=== PATIENT | female | born 1960 | race Caucasian/White ===

== ENCOUNTER 2016-12-09 19:50 | Emergency (ER) | payer OTHER ==
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
[2016-12-09 20:05] VITALS: BP 142/66; PULSE 68; TEMP 97.7; BMI 32.3
== END 2016-12-09 20:10 | disposition home or self-care (01) ==
LOC: FER 19:50
DX: Z48.00 Encounter for change or removal of nonsurgical wound dressing (principal)
CPT/HCPCS: 99281-25

== ENCOUNTER 2017-05-05 06:18 | Day surgery (SDC) | payer OTHER ==
[2017-04-26 10:34] VITALS: BMI 34.4
[2017-05-05] MEDS ORDERED: MIDAZOLAM HCL 2 MG/2 ML SINGLE DOSE VIAL ONE (07:28)
[2017-05-05] MEDS ORDERED: ROPIVACAINE HCL 0.5% 30ML VIAL ONE (07:28)
[2017-05-05] MEDS ORDERED: PROPOFOL 20 ML ONE ×5 (07:58→09:07)
[2017-05-05] MEDS ORDERED: SUCCINYLCHOLINE CHLORIDE 200 MG/10 ML VIAL ONE (07:59)
[2017-05-05] MEDS ORDERED: PHENYLEPHRINE HCL 10 MG/1 ML SINGLE DOSE VIAL ONE (07:59)
[2017-05-05] MEDS ORDERED: ePHEDrine SULFATE 50 MG/1 ML AMPULE ONE ×2 (07:59→08:23)
[2017-05-05] MEDS ORDERED: ceFAZolin SODIUM 1 GM VIAL ONE ×2 (08:33)
[2017-05-05] MEDS ORDERED: BACITRACIN 15 GM TUBE TOPICAL OINTMENT ONE (09:42)
[2017-05-05] MEDS ORDERED: ONDANSETRON 4 MG/2 ML VIAL IVPUSH PRN (10:23)
[2017-05-05] MEDS ORDERED: ONDANSETRON 4 MG/2 ML VIAL ONE (11:06)
[2017-05-05] MEDS ORDERED: ACETAMINOPHEN 325 MG TABLET (FP) PO ONE (11:10)
[2017-05-05 12:17] VITALS: TEMP 98
[2017-05-05 13:21] VITALS: BP 131/79; PULSE 49
--- NOTE | 2017-05-06 06:56 | OP ---
DATE OF OPERATION: 05/05/2017 PREOPERATIVE DIAGNOSES: Left knee anterior cruciate ligament rupture, medial meniscal tear. POSTOPERATIVE DIAGNOSES: Left knee anterior cruciate ligament rupture, medial meniscal tear, plus lateral meniscal tear. PROCEDURE: Left knee arthroscopy, anterior cruciate ligament reconstruction utilizing tibialis anterior allograft, partial medial, partial lateral meniscectomy. SURGEON: Jess Bell MD FLOOR TECHNICIAN: LUCIA Madrid, whose skillful assistance was necessary for the safe and timely performance of this procedure. Ms. Cortes was able to assist in retraction, limb positioning, driving the camera, assisting in the insertion of orthopedic stabilization of hardware. ANESTHESIA TYPE: Regional, plus spinal. POSTOPERATIVE CONDITION: Stable. COMPLICATIONS: None. IMPLANTS: Arthrex TightRope x2. INDICATIONS: This is a pleasant 57-year-old woman who had been having instability symptoms to her knee. MRI demonstrated ACL tear, medial meniscal tear. Treatment options including nonoperative versus operative management were discussed. Operative risks were reviewed in detail including bleeding, infection, neurovascular injury, need for further surgery, postoperative pain and stiffness, persistent instability, progression of osteoarthritis. We discussed medical risks such as heart attack, stroke, DVT, PE, and . We discussed the use of perioperative DVT prophylaxis. We discussed the use of perioperative antibiotic prophylaxis. We reviewed the postoperative rehabilitation protocol. I addressed all the patient's questions. She voiced understanding and elected to proceed. DESCRIPTION OF PROCEDURE: Patient was brought to the operating room after the administration of a regional block in the preoperative holding area. The left lower extremity was then prepped and draped in the usual sterile fashion. A preoperative dose of antibiotics given and the usual timeout procedure was performed. At this point, the knee was examined. There was a moderate effusion. There was positive Lelia. The collaterals and PCL were stable. The arthroscopic portal sites were now marked out. The lateral portal was now established using an 11 blade. The arthroscope was now passed into the knee. Examination of the patellofemoral joint demonstrated grade 3 on the patellar side and grade 4 chondromalacia. The arthroscope was now passed down into the notch. Here, the ACL was seen to be scarred into the PCL. The medial portal was now established under spinal needle localization. Probing of the ACL demonstrated that there were still a small number of fibers attached to the lateral wall. However, they were not under tension and, therefore, resulting in ACL insufficiency. The arthroscope was now passed to the medial compartment. Here, there were moderate, grade 3 changes in the tibial and femoral sides. There was a bucket-handle tear of the posterior horn of the medial meniscus. Utilizing a combination of meniscal biters and a shaver, the meniscus was debrided down to a stable base. The arthroscope was now passed to the lateral compartment. Here, a bucket-handle lateral meniscus tear was also identified in the posterior horn and body. Again, utilizing a combination of meniscal biters and a shaver, this was debrided down to a stable base. The arthroscope was now passed back into the notch. The remnant of the ACL was debrided. This was done using the shaver as well as RF cautery. The graft, meanwhile, was prepared on the back table. A size 10 x 72 mm graft was obtained and loaded onto TightRopes. The arthroscope was now passed to the anatomic origin of the ACL on the femoral side. A femoral drill guide was inserted, and a small incision was made distally in the thigh. The trocar was passed down to the level of the bone. A FlipCutter was now drilled into the knee. FlipCutter position was verified visually and was satisfactory. FlipCutter was now toggled, and a 10 mm x 25 mm socket was created in the femur. The FlipCutter was now removed. Passing suture was placed. Attention was then turned to the tibial side. The tibial drill guide was inserted. This also was placed into the center of the anatomic footprint. The trocar was again inserted through a small incision, this time in the anterior surface . The FlipCutter was now drilled into the knee. FlipCutter position was verified visually and was satisfactory. The FlipCutter was then toggled, and a 40 mm x 10 mm socket was created on the tibial side. The graft was now loaded onto the passing sutures, and the TightRope was passed through the femoral tunnel. The TightRope was retrieved out of the lateral aspect of the femur. Clamp was then placed, and the TightRope was laid down onto the lateral aspect of the femoral cortex. The TightRope was now toggled in order to retrieve the graft into the femoral socket by 20 mm. The tibial sutures were now passed. The button was loaded onto the graft. Even though the FlipCutter had come out the anterior tibial cortex, the larger button was used. The knee was now cycled 10 times and was held in a position of 25 degrees of flexion. A TightRope on the tibial side was now patent. A Lelia maneuver was now performed demonstrating good stability to the knee. At this point, the excess sutures were tied and cut. The subcutaneous tissue was approximated using 3-0 Vicryl. The skin was closed using 3-0 nylon. Sterile dressings were placed. The patient was placed into a knee immobilizer. She was transferred to the recovery room in stable condition. JESS BELL M.D. [id number]
== END 2017-05-05 13:25 | disposition home or self-care (01) ==
LOC: FASU 06:18
PROVIDERS: ATTEND Orthopaedic Surgery Sports Medicine
PROC: 0SBD4ZZ Excision of Left Knee Joint, Percutaneous Endoscopic Approach (ICD-10-PCS; 2017-05-05)
PROC: 0SBD4ZZ Excision of Left Knee Joint, Percutaneous Endoscopic Approach (ICD-10-PCS; 2017-05-05)
PROC: 0MQP4ZZ Repair Left Knee Bursa and Ligament, Percutaneous Endoscopic Approach (ICD-10-PCS; principal; 2017-05-05 08:39)
DX: S83.242A Other tear of medial meniscus, current injury, left knee, initial encounter (principal); S83.282A Other tear of lateral meniscus, current injury, left knee, initial encounter; X58.XXXA Exposure to other specified factors, initial encounter; Y93.9 Activity, unspecified; Y92.9 Unspecified place or not applicable
CPT/HCPCS: 94760; 97116-GP

== ENCOUNTER 2018-01-04 04:56 | Day surgery (SDC) | payer OTHER ==
[2018-01-02 13:54] VITALS: BMI 35.9
[2018-01-04] MEDS ORDERED: DEXTROSE 5%-0.45% SALINE 1,000 ML IV SCH (11:00)
[2018-01-04] MEDS ORDERED: IBUPROFEN 800 MG/8 ML IJ IVPB SCH (11:00)
[2018-01-04] MEDS ORDERED: ACETAMINOPHEN 1000 MG/100 ML VIAL (NON FORMULARY) IVPB ONE (11:01)
[2018-01-04] MEDS ORDERED: MIDAZOLAM HCL 2 MG/2 ML SINGLE DOSE VIAL ONE (11:16)
[2018-01-04] MEDS ORDERED: ROCURONIUM BROMIDE 50 MG/5 ML VIAL ONE (11:22)
[2018-01-04] MEDS ORDERED: PROPOFOL 20 ML ONE (11:22)
[2018-01-04] MEDS ORDERED: SUCCINYLCHOLINE CHLORIDE 200 MG/10 ML VIAL ONE (11:22)
[2018-01-04] MEDS ORDERED: ceFAZolin SODIUM 1 GM VIAL IVPB ONE (11:25)
[2018-01-04] MEDS ORDERED: ceFAZolin SODIUM 1 GM VIAL ONE (11:30)
[2018-01-04] MEDS ORDERED: VASOPRESSIN 20 UNITS/ML VIAL IV ONE (11:40)
[2018-01-04] MEDS ORDERED: LIDOCAINE HCL 2% JELLY (5 ML/TUBE) ONE (11:59)
[2018-01-04] MEDS ORDERED: LIDOCAINE HCL/PF 2% SDV 5ML VIAL ONE (11:59)
[2018-01-04] MEDS ORDERED: KETOROLAC TROMETHAMINE 30 MG/1 ML VIAL ONE (11:59)
[2018-01-04] MEDS ORDERED: DEXAMETHASONE SOD PHOSPHATE 4 MG/1 ML VIAL ONE (11:59)
[2018-01-04] MEDS ORDERED: ACETAMINOPHEN INJECTION 100 ML IVPB ONE (12:47)
[2018-01-04] MEDS ORDERED: PROMETHAZINE HCL 25 MG/1 ML VIAL IVPUSH PRN (13:58)
[2018-01-04] MEDS ORDERED: oxyCODONE HCL 5 MG TABLET PO PRN (13:58)
[2018-01-04] MEDS ORDERED: ONDANSETRON 4 MG/2 ML VIAL IVPUSH PRN (13:58)
[2018-01-04] MEDS ORDERED: LACTATED RINGERS SOLUTION 1,000 ML IV SCH (14:00)
[2018-01-04 15:17] VITALS: BP 110/60; PULSE 49; TEMP 98.1
--- NOTE | 2018-01-31 13:59 | OP ---
DATE OF OPERATION: 01/04/2018 PREOPERATIVE DIAGNOSES: Stress urinary incontinence, hypermobile urethra. POSTOPERATIVE DIAGNOSES: Stress urinary incontinence, hypermobile urethra. PROCEDURE: Suburethral sling, cystoscopy. ANESTHESIA: General. SURGEON: Darshan Bhagat MD ESTIMATED BLOOD LOSS: Minimal. FINDING: Hypermobile urethra. PREOPERATIVE INDICATIONS: The patient is a 57-year-old female with stress urinary incontinence by history, exam, and by testing. She comes to the OR for sling placement. OPERATION: Patient was brought to the OR, placed on the table in supine position, given general anesthesia and IV antibiotics and placed in the modified lithotomy position. The groin was prepped and draped sterilely. Grady catheter was placed. The middle portion of the urethra was identified and marked with a marking pen. Pitressin was injected into the vagina mucosa. An incision was made over the mid-portion of the urethra. The vagina mucosa was sharply dissected off the periurethral tissues in a lateral fashion. The bladder was emptied. Using the Altis mini-sling, the trocar was placed on the right side, through the incision under fingertip control into the obturator canal. The trocar was rotated. The device implanted. This was also done on the left side. Cystoscopy was performed, revealed no evidence of any perforation. There was also no evidence of any button holing within the vaginal mucosa. The sling was tightened, so it was lying flat against the urethra. It was low tension. The excess suture was excised. The vaginal mucosa was closed with 2-0 Vicryl suture in running fashion. Patient was woken up. Mateusz [id number]
== END 2018-01-04 15:00 | disposition home or self-care (01) ==
LOC: JASU-SURG 04:56
PROVIDERS: ATTEND Urology
PROC: 0TSD0ZZ Reposition Urethra, Open Approach (ICD-10-PCS; principal; 2018-01-04 09:00)
DX: N39.3 Stress incontinence (female) (male) (principal); N36.41 Hypermobility of urethra; I10 Essential (primary) hypertension; E66.01 Morbid (severe) obesity due to excess calories
CPT/HCPCS: 94760; J0131

== ENCOUNTER 2019-08-12 10:24 | Emergency (ER) | payer OTHER ==
--- NOTE | 2019-08-12 10:27 | PDOC ---
History of Present Illness - General Chief Complaint: Injury Stated Complaint: TRIP AND FALL, HEAD/FACIAL INJURY Time Seen by Provider: 08/12/19 10:27 History Source: Patient Exam Limitations: No Limitations - History of Present Illness Initial Comments: 59 year old female with PMH HLD presented to ED for head injury fall associated with LOC. She reported last night she was walking from the kitchen to another room, and she figures she fell because the throw on the ground must have caught her toe, because she awoke on the ground face first with the rug moved. She denied prodromal symptoms. Her reported a friend went to the house last night and found the pt face down on the ground, but she immediately awoke and did not want to come to the ED. The reported he kept her awake for four hours last night because he was afraid she had a concussion. He reported this AM he was able to convince her to be medically evaluated. Pt denied headache, facial pain, neck pain, back pain, abdominal pain, extremity pain, chest pain, shortness of breath, lightheadedness, numbness, tingling, weakness, visual changes. ROS General: denied fever, chills, generalized weakness. HEENT: denied sore throat, rhinorrhea, ear pain. Cardiovascular: denied chest pain, palpitations, syncope, diaphoresis. Respiratory: denied shortness of breath, cough, sputum production, hemoptysis. Gastrointestinal: denied abdominal pain, nausea, vomiting, diarrhea, constipation, blood in stool. Genitourinary: denied dysuria, increased urinary frequency, hematuria, urinary incontinence, flank pain. Back: denied back pain. Musculoskeletal: denied joint pain, muscle pain, joint swelling. Neurological: denied headache, dizziness, numbness, tingling, weakness. Integumentary: denied rash, laceration, abrasion. Hematologic/Lymphatic: admitted to bruising. denied bleeding. PE Constitutional: Well-nourished, Well-developed, appearing stated age. Airway: intact Breathing: bilateral breath sounds Circulation: 2+ carotid pulse B/L HEENT: head is normocephalic, atraumatic. nasal bridge tenderness to palpation. infraorbital ecchymoses on the right. EOMI. PERRLA. Neck: supple. Full ROM. no midline c-spine tenderness to palpation. No step offs. Cardiovascular: regular heart rhythm. no murmurs. no pericardial friction rub. Chest wall: No tenderness to palpation of anterior chest wall. No deformity to anterior chest wall. Respiratory: clear to auscultation bilaterally. no crackles, rhonchi or wheezing. no stridor. Gastrointestinal: soft, nontender. normal bowel sounds. no rebound, guarding, masses. No ecchymoses. Back: no midline T-spine or L-spine tenderness to palpation. No step offs. Pelvis: lower extremities equal in length without external rotation. No hip tenderness to palpation. ambulates well without assistance. Extremities: peripheral pulses intact. no lower extremity edema. Neurological: alert. oriented x3. CN2-12 intact. 5/5 strength all extremities. normal ankle plantar flexion. full sensation all extremities and bilateral face. romberg negative. no ataxia. gait normal. Psych: awake, alert, oriented x3. follows commands. answers questions appropriately. Past History - Past Medical History Allergies/Adverse Reactions: Allergies Allergy/AdvReac Type Severity Reaction Status Date / Time No Known Allergies Allergy Verified 08/12/19 10:25 Home Medications: Ambulatory Orders Esomeprazole Magnesium [Nexium 24Hr] 40 mg PO DAILY 12/09/16 Topiramate 100 mg PO ASDIR 01/02/18 - Immunization History Immunization Up to Date: Yes - Psycho Social/Smoking Cessation Hx Smoking History: Former smoker Have you smoked in the past 12 months: No Number of Cigarettes Smoked Daily: 3 If you are a former smoker, when did you quit?: 2015 Drug/Substance Use Hx: No Substance Use Type: None Hx Substance Use Treatment: No ED Treatment Course - LABORATORY CBC & Chemistry Diagram: 08/12/19 11:23 08/12/19 11:23 Medical Decision Making - Medical Decision Making 59 year old female with above PMH presented to ED for mechanical fall involving head injury with LOC. Physical examination significant for infraorbital ecchymoses and nasal bridge tenderness. Initial Vital Signs Temp Pulse Resp BP Pulse Ox 97.8 F 83 18 124/69 100 08/12/19 10:25 08/12/19 10:25 08/12/19 10:25 08/12/19 10:25 08/12/19 10:25 Afebrile. No tachycardia. No tachypnea. No hypertension. No hypoxia on room air. Labs ordered: UA, CBC, CMP, troponin, mag, TSH Imaging ordered: CT head, CT cervical spine, CT facial bones Medications ordered: tylenol 975 mg PO once EKG performed at 1142: rate 62, regular rhythm, normal axis, normal intervals, no acute ST changes. 08/12/19 12:56 CT facial bones report: Name: [facility] Phys: Toya Pappasa RESIDENT : 1960 Age: 59 Sex: F [facility] Acct: [id number] Loc: [facility] [address] Exam Date: 08/12/19 Status: [place] [address] Unit Number: [id number] EXAM #: TYPE/EXAM: RESULT: [id number] CT/FACIAL BONES CT W/O CONTRAST History provided : Fall. Sequential axial images were obtained through the facial bones. Coronal and sagittal reconstructed images were also performed. There is a nondisplaced fracture through the left nasal bones near the nasal bridge. No additional facial bone fractures or acute bony abnormalities are identified. The orbits are intact with no intraorbital masses or fluid collections. The paranasal sinuses are clear. IMPRESSION: Left-sided nasal bone fracture. Reported By: Yossi Valderrama MD 08/12/[address] head report: Name: [facility] Phys: Toya Pappasa RESIDENT : 1960 Age: 59 Sex: F [facility] Acct: [id number] Loc: [facility] [address] Exam Date: 08/12/19 Status: [place] [id number] Unit Number: [id number] EXAM #: TYPE/EXAM: RESULT: [id number] CT/HEAD CT WITHOUT CONTRAST HISTORY PROVIDED: Fall TECHNIQUE: Sequential axial images were obtained from the base of the skull to the vertex. There is no evidence of acute intracranial hemorrhage, mass lesions or infarctions. There is a mild degree of diffuse cerebral atrophy with sulcal widening and ventricular dilatation. There is no evidence of fracture or acute bony pathology. IMPRESSION: No evidence of acute intracranial pathology. Reported By: Yossi Valderrama MD 08/12/[address] cervical spine report: Name: [facility] Phys: Anny Pappas RESIDENT : 1960 Age: 59 Sex: F [facility] Acct: [id number] Loc: [facility] [place]. Exam Date: 08/12/19 Status: [place] [id number] Unit Number: [id number] EXAM #: TYPE/EXAM: RESULT: [id number] CT/CERVICAL SPINE CT W/O CONTR History provided : Fall. Sequential axial images were obtained through the cervical spine from the base of the skull to the thoracic inlet. Coronal and sagittal reconstructed images were also performed. There is no evidence of fracture, dislocation or acute bony abnormalities. Moderate degenerative arthritic changes are noted diffusely. The spinal canal is widely patent with no evidence of cord compromise. IMPRESSION: Moderate degenerative arthritis with no fracture or acute pathology. Reported By: Yossi Valderrama MD 08/12/19 1248 08/12/19 14:24 Laboratory Last Values WBC 9.9 K/mm3 (4.0-10.8) 08/12/19 11:23 RBC 4.51 M/mm3 (3.60-5.2) 08/12/19 11:23 Hgb 14.4 GM/dl (10.7-15.3) 08/12/19 11:23 Hct 43.1 % (32.4-45.2) 08/12/19 11:23 MCV 95.6 fl (80-96) 08/12/19 11:23 MCH 31.8 pg (25.7-33.7) 08/12/19 11:23 MCHC 33.3 g/dl (32.0-36.0) 08/12/19 11:23 RDW 12.4 % (11.6-15.6) 08/12/19 11:23 Plt Count 302 K/MM3 (134-434) 08/12/19 11:23 MPV 9.5 fl (7.5-11.1) 08/12/19 11:23 Absolute Neuts (auto) 6.5 K/mm3 08/12/19 11:23 Neutrophils % 65.4 % (42.8-82.8) 08/12/19 11:23 Lymphocytes % 23.8 % (8-40) 08/12/19 11:23 Monocytes % 7.4 % (3.8-10.2) 08/12/19 11:23 Eosinophils % 2.8 % (0-4.5) 08/12/19 11:23 Basophils % 0.6 % (0-2.0) 08/12/19 11:23 PT with INR 12.6 SEC (10.2-13.0) 08/12/19 11:23 INR 1.13 (0.82-1.09) 08/12/19 11:23 PTT (Actin FS) 27.5 SECONDS (25.2-36.5) 08/12/19 11:23 Sodium 139 mmol/L (136-145) 08/12/19 11:23 Potassium 3.9 mmol/L (3.5-5.1) 08/12/19 11:23 Chloride 106 mmol/L (98-107) 08/12/19 11:23 Carbon Dioxide 27 mmol/L (21-32) 08/12/19 11:23 Anion Gap 6 MMOL/L (8-16) L 08/12/19 11:23 BUN 12.0 mg/dl (7-18) 08/12/19 11:23 Creatinine 0.7 mg/dl (0.55-1.3) 08/12/19 11:23 Est GFR (CKD-EPI)AfAm 110.69 08/12/19 11:23 Est GFR (CKD-EPI)NonAf 95.50 08/12/19 11:23 Random Glucose 102 mg/dl (74-106) 08/12/19 11:23 Calcium 9.2 mg/dL (8.5-10.1) 08/12/19 11:23 Magnesium 1.8 mg/dL (1.8-2.4) 08/12/19 11:23 Total Bilirubin 0.9 mg/dl (0.2-1) 08/12/19 11:23 AST 47 U/L (15-37) H 08/12/19 11:23 ALT 77 U/L (13-61) H 08/12/19 11:23 Alkaline Phosphatase 78 U/L (45-117) 08/12/19 11:23 Troponin I < 0.03 ng/ml (0.00-0.05) 08/12/19 11:23 Total Protein 7.0 g/dl (6.4-8.2) 08/12/19 11:23 Albumin 4.3 g/dl (3.4-5.0) 08/12/19 11:23 TSH 1.39 uIU/ml (0.358-3.74) 08/12/19 11:23 No leukocytosis. No anemia. No electrolyte abnormalities. No SATNAM. Troponin wnl. TSH wnl. Pt reported no headache, no lightheadedness, no chest pain, no shortness of breath. Pt informed of results, given copies of CT. Pt discharged with at bedside. Discharge - Discharge Information Problems reviewed: Yes Clinical Impression/Diagnosis: Nasal bone fracture, Head injury Condition: Stable Disposition: HOME - Admission No - Follow up/Referral Referrals: Melvin Cardenas MD [Primary Care Provider] - - Patient Discharge Instructions Patient Printed Discharge Instructions: DI for Nose Fracture Additional Instructions: Follow up with your primary care doctor within 3 days regarding your Emergency Room visit. Your care is not complete until you follow up. Return to the Emergency Department for increasing pain, dizziness, room- spinning sensation, lightheadedness, chest pain, shortness of breath, vomiting, or any other new, worsening or concerning symptoms. Take Tylenol over the counter for pain. Take as advised on label. You can add Ibuprofen if Tylenol is not enough, take as advised on label. Tylenol and ibuprofen are not the same medication and can be taken together. - Post Discharge Activity
[2019-08-12 10:31] VITALS: BP 124/69; PULSE 83; TEMP 97.8; BMI 34.4
[2019-08-12] MEDS ORDERED: ACETAMINOPHEN 325 MG TABLET (FP) PO ONE (10:36)
--- NOTE | 2019-08-12 10:52 | PDOC ---
Attending Attestation - Resident Resident Name: Anny Pappas - ED Attending Attestation I have performed the following: I have examined & evaluated the patient, The case was reviewed & discussed with the resident, I agree w/resident's findings & plan, Exceptions are as noted - HPI HPI: 08/12/19 10:36 59y F hx of HL presents with complaint of head injury. Pt Bit frustrated because her lites were working also her mother has been sick she was heading into her bedroom when she Possibly syncopized vs fell. Patient does not recall exactly what happened but states that her rug was out of place and surmised that she may have tripped over. A worker found her on the floor and noticed she was a little bit confused. Patient denies recalling any history of headache , chest pain, palpitations, abdominal pain, back pain, neck pain, vision changes , nausea, vomiting, Fever, chills, cough, diarrhea, dysuria, melena, BPR, Urinary or bowel incontinence. The patient did not want to come in last night but was convinced to come in for evaluation by her . pmd" dr. sue exam: GENERAL: The patient is awake, alert, and fully oriented, Nontoxic - in no acute distress. HEAD: Normocephalic, Ecchymosis under her right eye, No focal bony tenderness on the scalp or face EYES: extraocular movements intact, sclera anicteric, Pupils equal and reactive to light,conjunctiva clear. ENT: Normal voice, Moist mucous membranes. NECK: Normal range of motion, supple LUNGS: Breath sounds equal, clear to auscultation bilaterally. No wheezes, no rhonchi, no rales. HEART: Regular rate and rhythm, normal S1 and S2 without murmur, rub or gallop. ABDOMEN: Soft, nontender, No guarding, no rebound. No CVA tenderness EXTREMITIES: Normal range of motion, no edema. NEUROLOGICAL: No facial assymetry, Normal speech, PSYCH: Normal mood, normal affect. SKIN: Warm, Dry, normal turgor, Back: No midline tenderness to the cervical, thoracic or lumbar spine Musculoskelatal: FROM of b/l shoulders, elbows, wrist. FROM of hips, knees, ankles - No signs of ecchymosis, erythema, or crepitus noted on palpation extremities, chest wall, clavicals, ribs, back. Will obtain blood work to work up possible syncope As she does not recall her fall however Her memory may be secondary to retrograde amnesia from the fall. Will obtain CT head facial bones and neck to rule out any fracture or injury EKG to screen for arrhythmia Tylenol for headache - Medical Decision Making 08/12/19 13:[address] s noted for nasal bone fx - will have her fu with pmd / ent pts labs reiviewed anticipate dc with supportive care and outpatient management pt is low risk for arrthmia Heart Score/ECG Review - ECG Impressions Comment:: 08/12/19 11:45 Twelve-lead EKG was performed and reviewed by me. There is normal sinus rhythm with a normal rate. Rate of 62 The axis is normal. The intervals are normal. Abnormal R wave progression Rate of 62
[2019-08-12 11:39] LABS: BASO % 0.6 % (0-2.0); EOS % 2.8 % (0-4.5); HEMATOCRIT 43.1 % (32.4-45.2); HEMOGLOBIN 14.4 GM/dl (10.7-15.3); LYMPH % 23.8 % (8-40); MCH 31.8 pg (25.7-33.7); MCHC 33.3 g/dl (32.0-36.0); MEAN CELL VOLUME 95.6 fl (80-96); MEAN PLT VOLUME 9.5 fl (7.5-11.1); MONO % 7.4 % (3.8-10.2); NEUT % 65.4 % (42.8-82.8); PLATELET COUNT 302 K/MM3 (134-434); RBC 4.51 M/mm3 (3.60-5.2); RDW 12.4 % (11.6-15.6); WHITE BLOOD COUNT 9.9 K/mm3 (4.0-10.8)
[2019-08-12 11:48] LABS: ALBUMIN 4.3 g/dl (3.4-5.0); BILIRUBIN,TOTAL 0.9 mg/dl (0.2-1); CREATININE 0.7 mg/dl (0.55-1.3); MAGNESIUM 1.8 mg/dL (1.8-2.4)
[2019-08-12 11:49] LABS: ACTIVATED PTT 27.5 SECONDS (25.2-36.5)
[2019-08-12 11:54] LABS: INR 1.13 (0.82-1.09); PROTHROMBIN TIME (PATIENT) 12.6 SEC (10.2-13.0)
--- NOTE | 2019-08-12 13:36 | EKG ---
Test Reason : Blood Pressure : / mmHG Vent. Rate : 062 BPM Atrial Rate : 062 BPM P-R Int : 178 ms QRS Dur : 106 ms QT Int : 430 ms P-R-T Axes : 082 -12 042 degrees QTc Int : 436 ms NORMAL SINUS RHYTHM SEPTAL INFARCT (CITED ON OR BEFORE 24-JUL-2010) ABNORMAL ECG WHEN COMPARED WITH ECG OF 26-APR-2017 10:44, NO SIGNIFICANT CHANGE WAS FOUND Confirmed by MD Yeni, Fer ([id number]) on 08/12/2019 1:36:43 PM Referred By: ALEXA Confirmed By:Fer Jaime MD
[2019-08-12 13:41] LABS: CALCIUM 9.2 mg/dL (8.5-10.1); POTASSIUM 3.9 mmol/L (3.5-5.1)
== END 2019-08-12 14:40 | disposition home or self-care (01) ==
LOC: FER 10:24
DX: S02.2XXA Fracture of nasal bones, initial encounter for closed fracture (principal); W01.0XXA Fall on same level from slipping, tripping and stumbling without subsequent striking against object, initial encounter; Y93.89 Activity, other specified; Y92.008 Other place in unspecified non-institutional (private) residence as the place of occurrence of the external cause; S09.90XA Unspecified injury of head, initial encounter; E78.5 Hyperlipidemia, unspecified; Z87.891 Personal history of nicotine dependence
CPT/HCPCS: 36415; 70450-TC; 70486-TC; 72125-TC; 80053; 83735; 84443; 84484; 85025; 85610; 85730; 93005; 99284-25

== ENCOUNTER 2023-09-01 04:30 | Day surgery (SDC) | payer OTHER ==
[2023-08-29 15:40] VITALS: BMI 34.7
[2023-09-01 10:04] VITALS: TEMP 97.8
[2023-09-01 10:30] VITALS: BP 129/77; PULSE 51; RESP 12
== END 2023-09-01 11:00 | disposition home or self-care (01) ==
LOC: JASU-ENDO 04:30
PROVIDERS: ATTEND Internal Medicine Gastroenterology
PROC: 0DBP8ZX Excision of Rectum, Via Natural or Artificial Opening Endoscopic, Diagnostic (ICD-10-PCS; 2023-09-01)
PROC: 0DBM8ZX Excision of Descending Colon, Via Natural or Artificial Opening Endoscopic, Diagnostic (ICD-10-PCS; principal; 2023-09-01 08:45)
DX: Z51.11 Encounter for antineoplastic chemotherapy (principal); K57.30 Diverticulosis of large intestine without perforation or abscess without bleeding; D12.8 Benign neoplasm of rectum; D12.4 Benign neoplasm of descending colon; K64.8 Other hemorrhoids
CPT/HCPCS: 88305-TC

== ENCOUNTER 2024-04-24 04:33 | Emergency (ER) | payer OTHER ==
[2024-04-24 04:44] VITALS: BP 112/70; PULSE 90; RESP 16; TEMP 98.6; BMI 35.9
[2024-04-24] MEDS ORDERED: ACETAMINOPHEN INJECTION 100 ML IVPB ONE (05:12)
[2024-04-24] MEDS ORDERED: VANCOMYCIN 1,000 MG VIAL (RESTRICTED TO ID ONLY) ONE (05:13)
[2024-04-24] MEDS ORDERED: PIPERACILLIN/TAZOBACTAM 4.5 GM VIAL IVPB ONE (05:13)
[2024-04-24] MEDS: morphine CARPU-JECT 2 MG/1 ML DISP.SYRIN IVPUSH ONE (05:21)
[2024-04-24] MEDS: ACETAMINOPHEN 1000 MG/100 ML BAG IVPB ONE (05:22)
[2024-04-24] MEDS: PIPERACILLIN/TAZOB 4.5 GM 4.5 GM in DEXTROSE 5%-WATER 100 ML IVPB ONE (05:33)
[2024-04-24] MEDS: VANCOMYCIN 1,000 MG in DEXTROSE 5%-WATER - 250 ML IVPB ONE (05:59)
[2024-04-24 06:23] LABS: BASO % 0.7 % (0-2.0); EOS % 2.3 % (0-4.5); HEMATOCRIT 36.8 % (32.4-45.2); HEMOGLOBIN 12.7 GM/dL (10.7-15.3); LYMPH % 15.4 % (8-40); MCH 32.5 pg (25.7-33.7); MCHC 34.6 g/dl (32.0-36.0); MEAN PLT VOLUME 8.7 fl (7.5-11.1); MONO % 8.4 % (3.8-10.2); NEUT % 73.2 % (42.8-82.8); PLATELET COUNT 215 10^3/uL (134-434); RBC 3.92 M/mm3 (3.60-5.2); RDW 12.9 % (11.6-15.6); WHITE BLOOD COUNT 8.7 K/mm3 (4.0-10.0)
[2024-04-24 06:31] LABS: INR 1.05 (0.83-1.09); PROTHROMBIN TIME (PATIENT) 12.1 SEC (9.7-13.0)
[2024-04-24 06:43] LABS: POTASSIUM 3.9 mmol/L (3.5-5.1)
[2024-04-24 06:45] LABS: CALCIUM 9.6 mg/dL (8.5-10.1)
[2024-04-24 06:46] LABS: ALBUMIN 3.8 g/dl (3.4-5.0); BLOOD UREA NITROGEN 9.2 mg/dL (7-18)
[2024-04-24 06:49] LABS: CREATININE 0.7 mg/dL (0.55-1.3)
[2024-04-24 06:50] LABS: BILIRUBIN,TOTAL 1.3 mg/dL (0.2-1)
[2024-04-24 06:51] LABS: N-TERMINAL BNP 420.6 pg/ml (5-125)
[2024-04-24] MEDS: AMPICILLIN NA/SULBACTAM NA 3 GM in SODIUM CHLORIDE 100 ML IVPB ONE (09:46)
[2024-04-24 10:03] LABS: ERYTHROCYTE SEDIMENTATION RATE 43 mm/hr (0-30)
[2024-04-24 12:29] LABS: HIV INTERPRETATION NEGATIVE (NEGATIVE)
== END 2024-04-24 09:58 | disposition home or self-care (01) ==
LOC: FER 04:33
PROC: 3E03329 Introduction of Other Anti-infective into Peripheral Vein, Percutaneous Approach (ICD-10-PCS; principal; 2024-04-24)
PROC: 3E03329 Introduction of Other Anti-infective into Peripheral Vein, Percutaneous Approach (ICD-10-PCS; 2024-04-24)
PROC: 3E033NZ Introduction of Analgesics, Hypnotics, Sedatives into Peripheral Vein, Percutaneous Approach (ICD-10-PCS; 2024-04-24)
PROC: 3E033NZ Introduction of Analgesics, Hypnotics, Sedatives into Peripheral Vein, Percutaneous Approach (ICD-10-PCS; 2024-04-24)
DX: L02.31 Cutaneous abscess of buttock (principal); M79.89 Other specified soft tissue disorders; M79.671 Pain in right foot; Z20.822 Contact with and (suspected) exposure to COVID-19
CPT/HCPCS: 0241U-QW; 36415; 71045-TC-FY; 72193-TC; 73630-TC-LT; 73630-TC-RT-FY; 80053; 80307; 82010; 83605; 83880; 84436; 84443; 84484; 85025; 85610; 85651; 86140; 86803; 86850; 86900; 86901; 87040; 87389; 93005; 99285-25; J0131; Q9967